=== PATIENT | female | born 1945 | race Hispanic/Latino ===

== ENCOUNTER → 2017-09-27 | Outpatient (CLI) | payer MEDICARE ==
--- NOTE | 2017-09-27 14:34 | Diagnostic Imaging Report ---
PROCEDURE:X-RAY RIGHT ANKLE, COMPLETE TECHNIQUE:AP, lateral and oblique views right ankle INDICATION:Right ankle pain COMPARISON:None. FINDINGS: Right ankle and image regional skeleton are intact and in anatomic alignment. Small Achilles enthesophyte. Intact soft tissues. CONCLUSION: No acute abnormality. Dictated by: Yospeh Canas M.D. on 09/27/2017 at 14:34 Electronically approved by: Yoseph Canas M.D. on 09/27/2017 at 14:34
== END ==
LOC: RAD 13:53
PROVIDERS: ATTEND Family Medicine
DX: M25.571 Pain in right ankle and joints of right foot (principal)

== ENCOUNTER → 2017-10-01 | Outpatient (CLI) | payer MEDICARE ==
--- NOTE | 2017-10-01 13:26 | Diagnostic Imaging Report ---
EXAM: Bone mineral density study 10/01/2017 1:30 PM INDICATION: \S\OSTEOPOROSIS COMPARISON: None FINDINGS: Evaluation of the left hip and lumbar spine was performed. The study is technically adequate. The patient's fracture risk is compared to an age-matched control. Left femoral neck bone mineral density: 0.646 g/cm2, T-score is -1.9, Z-score is -0.1. Left hip total bone mineral density: 0.734 g/cm2, T-score is -1.7, Z-score is -0.1. Lumbar spine total bone mineral density: 0.794 gm/cm2, T-score is -2.3, Z-score is -0.1. IMPRESSION: Bone mineralization by WHO Classification is osteopenia, the fracture risk is increased. Signed by: Dr. Luis Hall MD on 10/01/2017 1:23 PM
== END ==
LOC: MAMMO 12:02
PROVIDERS: ATTEND Family Medicine
DX: Z12.31 Encounter for screening mammogram for malignant neoplasm of breast (principal); Z13.820 Encounter for screening for osteoporosis; M85.852 Other specified disorders of bone density and structure, left thigh; M85.88 Other specified disorders of bone density and structure, other site
CPT/HCPCS: 77080

== ENCOUNTER → 2023-06-28 | Outpatient (REF) | payer MEDICARE | LOC: MAMMO 12:44 | PROVIDERS: ATTEND Family Medicine | DX: R92.30 Dense breasts, unspecified (principal) ==

== ENCOUNTER → 2024-06-12 | Outpatient (REF) | payer MEDICARE | LOC: MAMMO 12:28 | PROVIDERS: ATTEND Family Medicine | DX: Z12.31 Encounter for screening mammogram for malignant neoplasm of breast (principal) | CPT/HCPCS: 77067 ==